=== PATIENT | female | born 1995 | race Hispanic/Latino ===

== ENCOUNTER 2024-09-08 13:45 | Emergency (ER) | payer OTHER ==
[~2024-09-08] VITALS: Ht 157.5 cm; Wt 154.2 kg
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
[2024-09-08 15:27] LABS: APPEARANCE,URINE CLOUDY (CLEAR); BILIRUBIN,URINE NEGATIVE (NEGATIVE); COLOR,URINE YELLOW (YELLOW); GLUCOSE, URINE (UA) NEGATIVE (NEGATIVE); KETONES,URINE NEGATIVE (NEGATIVE); LEUKOCYTE ESTERASE ,URINE 25 Leu/uL (NEGATIVE); NITRATE,URINE NEGATIVE (NEGATIVE); OCCULT BLOOD,URINE NEGATIVE (NEGATIVE); PROTEIN,URINE 20 mg/dL (NEGATIVE)
[2024-09-08 15:34] LABS: ADD UA MICROSCOPIC YES
[2024-09-08 15:35] LABS: HCG,QUALITATIVE URINE NEGATIVE (NEGATIVE)
[2024-09-08 15:40] LABS: BACTERIA,URINE RARE /HPF (None Seen); MUCUS,URINE RARE LPF (None Seen); RBC,URINE 51-100 /HPF (0-1); SQUAMOUS EPITHELIAL CELL,UR FEW /HPF (0-2); UNCLASSIFIED CRYSTAL 1 /HPF (None Seen)
[2024-09-08] MEDS: acetaMINOPHEN 325 MG TAB PO ONE (16:18)
[2024-09-08] MEDS: ORPHENADRINE 60MG/2ML IM ONE (16:18)
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
[2024-09-08 17:12] VITALS: BP 144/87; PULSE 99; RESP 19; TEMP 98.2; O2SAT 98
== END 2024-09-08 17:14 | disposition home or self-care (01) ==
LOC: EDH 13:45
DX: M54.2 Cervicalgia (principal); M25.511 Pain in right shoulder; M54.50 Low back pain, unspecified; V49.9XXA Car occupant (driver) (passenger) injured in unspecified traffic accident, initial encounter; Y93.89 Activity, other specified; Y92.488 Other paved roadways as the place of occurrence of the external cause; Y99.8 Other external cause status
CPT/HCPCS: 72040; 73501; 81001; 81025; 87086; 96372; 99284; J2360